=== PATIENT | female | born 1990 | race Caucasian/White ===

== ENCOUNTER → 2018-10-26 | Outpatient (REF) | payer OTHER | LOC: M SFHCLERA 20:50 | PROVIDERS: ATTEND Physician Assistant | DX: J02.9 Acute pharyngitis, unspecified (principal) ==

== ENCOUNTER → 2018-11-10 | Outpatient (CLI) | payer OTHER ==
[2018-11-10 11:39] LABS: THYROGLOBULIN ANTIBODY 16.3 U/ML (<60.0)
[2018-11-10 14:10] LABS: ESTRADIOL < 19.0 PG/ML; FOLLICLE STIMULATING HORMONE 87.3 mIU/mL
== END ==
LOC: M LRY 08:09
PROVIDERS: ATTEND Internal Medicine Endocrinology, Diabetes & Metabolism
DX: E28.310 Symptomatic premature menopause (principal)